=== PATIENT | male | born 1945 | race Caucasian/White ===

== ENCOUNTER 2022-03-18 13:01 | Emergency (ER) | payer MEDICARE, SELFPAY ==
[2022-03-18] VITALS (9 sets, daily range): BP systolic 115–143; BP diastolic 67–74; PULSE 77–90; RESP 13–20; TEMP 36.4; O2SAT 93–97
--- NOTE | ~2022-03-18 | XR_ITS ---
EXAMINATION: XR chest 1V portable DATE: 03/18/2022 13:28 INDICATION: Syncope. TECHNIQUE: A single frontal view of the chest was obtained. COMPARISON: None. FINDINGS: A calcified left lung nodule is consistent with old granulomatous disease. There is mild at electasis in the lower lung zones. No pleural effusion or pneumothorax. The heart size is normal. IMPRESSION: 1. Mild atelectasis in the lower lung zones. Reviewed, dictated and finalized at location A.
--- NOTE | 2022-03-18 13:11 | ECG_ITS ---
Measurements Intervals [place] Rate: 82 P: 37 WA: 172 QRS: 4 QRSD: 95 T: 33 QT: 359 QTc: 420 Interpretive Statements SINUS RHYTHM RSR' IN V1 OR V2, PROBABLY NORMAL VARIANT NORMAL ECG NO PREVIOUS ECG AVAILABLE FOR COMPARISON Electronically Signed On 03-18-2022 17:48:00 CDT by Daniel Torres D.O.
--- NOTE | 2022-03-18 13:14 | PC.NURSE ---
Patient reports he was working in a confined space and was having insulation falling on him, when he felt short of breath. Patient reports he told his brother he was going to pass out and sat down then passed out.
--- NOTE | 2022-03-18 13:21 | ED.GENADULT ---
HPI - General Adult General Chief complaint: Syncope Stated complaint: syncope Time Seen by Provider: 03/18/22 13:11 History of Present Illness HPI narrative: This is a 76-year-old male presenting to the ED after syncopal event. 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 There is very little air flow through the closet and was quite hot. Patient noted that he was very sweaty afterwards. When he finished working he left the room and was feeling lightheaded. He laid on the sofa and then had a syncopal event. He did not strike his head. It was witnessed by his son. He did have some slight shaking and an episode of vomiting at that time. Within 1 minute he had regained consciousness and returned to his baseline mental status. He was then brought to the hospital by his family for further evaluation. Patient denies any physical complaints at this time. Related Data Allergies Allergy/AdvReac Type Severity Reaction Status Date / Time No Known Allergies Allergy Verified 03/18/22 13:10 Review of Systems Review of Systems: CONSTITUTIONAL: Denies night sweats. EYES: No eye pain ENT: Denies rhinorrhea CARDIOVASCULAR: Denies palpitations RESPIRATORY: Denies hemoptysis GASTROINTESTINAL: Denies hematemesis GENITOURINARY: Denies hematuria. SKIN: Denies rash MUSCULOSKELETAL: Denies myalgia. NEUROLOGIC: Denies weakness. PSYCHIATRIC: Denies delusions PMFSH Past Medical History Medical History (Updated 03/18/22 @ 17:25 by Sterling Multani MD) Asthma Back pain Prostate cancer Surgical History Surgical History (Updated 03/18/22 @ 13:24 by Sterling Multani MD) H/O knee surgery History of appendectomy Social History Social History (Updated 03/18/22 @ 13:25 by Sterling Multani MD) Social History: Patient drinks alcohol occasionally, denies use tobacco or drugs. Exam Narrative: APPEARANCE: No apparent distress. Head atraumatic. EYES: PERRLA/EOMI, NOSE: Normal no drainage NECK: Supple, Trachea midline RESPIRATORY: Patient has scattered expiratory wheezes. No increased work of breathing. CARDIOVASCULAR: S1S2 appreciated ABDOMINAL: Soft, nontender, nondistended, MUSCULOSKELETAl: No obvious deformities NEURO: Alert. Moving 4/4 extremities SKIN:: Warm, dry. Normal color PSYCHIATRIC: Normal affect Course Vital Signs Vital signs: Vital Signs Temperature 97.6 F 03/18/22 13:03 Pulse Rate 82 03/18/22 13:03 Respiratory Rate 17 03/18/22 13:03 Blood Pressure 143/70 H 03/18/22 13:03 Pulse Oximetry 94 03/18/22 13:03 Temperature 97.6 F 03/18/22 13:03 Pulse Rate 77 03/18/22 16:44 Respiratory Rate 17 03/18/22 16:44 Blood Pressure 123/67 03/18/22 14:46 Pulse Oximetry 97 03/18/22 16:44 Medical Decision Making MDM Narrative Medical decision making narrative: This is a 76-year-old male presenting to the ED with an episode of syncope. Based on patient's history and physical this is most likely heat syncope related to his physical activity as well as some dehydration. However due to his advanced age we will obtain basic lab work including 2 troponins, EKG and chest x-ray. Patient will be given iv fluid resuscitation. Lab work was within acceptable levels including 2- troponins. Chest x-ray showed some bibasilar atelectasis but no other acute findings. Upon re-evaluation patient is feeling better. He is able ambulate with steady gait. He is comfortable going home at this time. Patient will be discharged with instructions return emergency department if his condition has worsened. Vital Signs Vital Signs: Vital Signs Temperature 97.6 F 03/18/22 13:03 Pulse Rate 82 03/18/22 13:03 Respiratory Rate 03/18/22 13:03 Blood Pressure 143/70 H 03/18/22 13:03 Pulse Oximetry 94 03/18/22 13:03 Temperature 97.6 F 03/18/22 13:03 Pulse Rate 77 03/18/22 16:44 Respiratory Rate 03/18/22 16:44 B
[2022-03-18] MEDS: SODIUM CHLORIDE 0.9% IV 1,000 ML 999 ML IV CONT (13:26)
[2022-03-18 13:33] LABS: Basophils Absolute Auto 0.1 K/mm3 (0.0-0.1); Eosinophils Absolute Auto 0.6 K/mm3 (0-0.3); Hematocrit 37.4 % (42.0-52.0); Hemoglobin 12.5 g/dL (14.0-18.0); Immature Granulocyte Absolute 0.03 K/mm3 (0.00-0.031); Immature Granulocyte Percent A 0.3 % (0-0.5); Lymphocytes Absolute Auto 3.05 K/mm3 (0.9-3.2); Mean Corpuscular HGB Conc 33.4 g/dl (32-36); Mean Corpuscular Hemoglobin 29.5 pg (26-34); Mean Corpuscular Volume 88.2 fl (80-100); Mean Platelet Volume 10.3 fl (7.4-10.4); Monocytes Percent Auto 8.2 % (2.6-8.5); Neutrophils Percent Auto 59.5 % (45.5-73.1); Platelet Count Result 257 k/mm3 (150-375); Red Blood Count 4.24 M/mm3 (4.6-6.20); Red Cell Distribution Width 14.8 % (11.5-14.5); White Blood Count 11.7 K/mm3 (4.5-10.0)
[2022-03-18 13:42] LABS: Alanine Aminotransferase 26 U/L (6-50); Alkaline Phosphatase 74 U/L (38-126); Anion Gap 10 mmol/L (8-16); Aspartate Amino Transferase 28 U/L (17-59); Bilirubin,Total 0.4 mg/dL (0.2-1.3); Blood Urea Nitrogen 23 mg/dL (9-20); Carbon Dioxide 23 mmol/L (22-30); Chloride 105 mmol/L (98-107); Estimated CRCL calculation 54 ml/min; Estimated Glomerular Filt Rate > 60; Glucose 112 mg/dL (65-110); Potassium 4.2 mmol/L (3.4-5.0); Sodium 138 mmol/L (137-145)
[2022-03-18] MEDS: ALBUTEROL SULFATE NEB 2.5 MG/3 ML INH 5 MG INHALATION (13:44)
[2022-03-18] MEDS: IPRATROPIUM BR 0.02% INH SOLN 0.5 MG/2.5 ML VIAL INHALATION (13:44)
[2022-03-18 13:53] LABS: NT Pro B Type Natriuretic Pept 170 pg/mL (5-100); Troponin I < 0.012 ng/mL (0.000-0.034)
[2022-03-18 16:48] LABS: Troponin I < 0.012 ng/mL (0.000-0.034)
--- NOTE | 2022-03-18 17:19 | PC.NURSE ---
Patient ambulated to the bathroom and back without any difficulty, dizziness, or light headedness.
== END 2022-03-18 17:38 | disposition home or self-care (01) ==
PROVIDERS: Emergency Provider Emergency Medicine; PCP Family Medicine
DX: R55 Syncope and collapse (principal)
CPT/HCPCS: 36415; 71045; 80053; 83880; 84484; 85025; 93005; 94640; 96360; 99284; J7030

== ENCOUNTER 2022-06-01 10:41 | Day surgery (SDC) | payer MEDICARE, SELFPAY ==
[2022-05-09 12:28] VITALS: BMI 31.6
[2022-05-17 11:55] VITALS: BMI 29.0
[2022-06-01 11:10] VITALS: BP 143/75; PULSE 70; RESP 20; TEMP 36.6; O2SAT 98
--- NOTE | 2022-06-01 12:31 | WPDANESEPPF ---
Anes - Initial Pre Proc Eval Procedure: Operation Date: 06/01/22 12:30 Proposed Procedures p Diagnostic Colonoscopy - Bertram Monroe MD Date/Time: 06/01/22 12:31 Surgeon: Bertram Monroe MD Pre Op Diagnosis: Positive Cologuard Patient Data Age: 76 Gender: M Height: 1.78 m Weight: 94.3 kg Allergies Allergy/AdvReac Type Severity Reaction Status Date / Time No Known Allergies Allergy Verified 06/01/22 11:12 Home Medications Medication Instructions Recorded Confirmed Type sodium,potassium,mag sulfates 17.5 See Rx Instructions PO .COMPLEX 05/09/22 06/01/22 Rx gram-3.13 gram-1.6 gram oral soln #354 mL (Suprep Bowel Prep Kit) albuterol sulfate 2.5 mg/3 mL 2.5 mg inhalation PRN PRN 05/17/22 06/01/22 History (0.083 %) solution for nebulization Shortness Of Breath albuterol sulfate 90 mcg/actuation 1 puff inhalation PRN PRN 05/17/22 06/01/22 History aerosol inhaler Shortness Of Breath budesonide-formoterol HFA 160 1 puff inhalation DAILY 05/17/22 06/01/22 History mcg-4.5 mcg/actuation aerosol inhaler (Symbicort) finasteride 5 mg tablet 5 mg PO DAILY 05/17/22 06/01/22 History gabapentin 100 mg capsule 200 mg PO BID 05/17/22 06/01/22 History meloxicam 7.5 mg tablet 7.5 mg PO DAILY 05/17/22 06/01/22 History pantoprazole 40 mg tablet,delayed 40 mg PO DAILY 05/17/22 06/01/22 History release tamsulosin 0.4 mg capsule 0.4 mg PO HS 05/17/22 06/01/22 History Patient hx anesthesia problems: other (slow to awaken) Family hx anesthesia problems: none Results Review: All pre-operative results and documents have been reviewed as part of the pre-operative evaluation. [facility] Past Medical History Medical History Arthritis Asthma Back pain COPD (chronic obstructive pulmonary disease) GERD (gastroesophageal reflux disease) Prostate cancer Surgical History Surgical History H/O knee surgery History of appendectomy Social History Social History Social History: Patient drinks alcohol occasionally, denies use tobacco or drugs. Smoking packs per day: 2 Smoking cigarettes per day: 40.0 Years smoked: 50 Smoking pack-years: 100.00 Smoking status: Former smoker Tobacco type: cigarettes Alcohol intake: current Alcohol use details: 1-2 hard liquor drinks per week Substance use: never Substance use type: does not use Living arrangements: with family Spiritual care concerns: No Anes - Eval Final PreProcedure Day of Procedure 06/01/22 12:31 Patient weight: overweight Heart: regular rate and rhythm Lungs: decreased breath sounds Airway: Mallampati scale class II Neurological: alert and oriented Last oral intake: >/= 8 hours ASA classification: III Emergent: no Anesthetic plan: proceed Anesthesia type and monitoring: general GIVS and standard monitoring Results Review: All pre-operative results and documents have been reviewed as part of the pre-operative evaluation. Informed Consent: The patient's anesthetic plan and its attendant risks and benefits were discussed with the patient/family/POA. Questions were solicited and answers provided to the satisfaction of the patient/family/POA.
[2022-06-01] MEDS: LACTATED RINGERS 1,000 ML 150 ML IV CONT ×2 (12:49→13:15)
--- NOTE | 2022-06-01 12:50 | PM.HPGS ---
History of Present Illness History of Present Illness Consent: Risks, benefits, and alternatives have been discussed and questions answered. Patient agrees to proceed with procedure. Chief complaint: Positive Cologuard Narrative: Hernandez Robertson is a 76 year old male Presents for colonoscopy. Patient's current weight appetite and bowel movements are normal. Patient underwent a recent Cologuard test that was positive for this reason referred for colonoscopy. Patient gives a history that he has had colon polyps in the past. Family history is significant both father and brother with colon cancer. Patient states his most recent colonoscopy was 5 years ago. Review of Systems Review of Systems: review of systems noncontributory. PMFSH Past Medical History Medical History Arthritis Asthma Back pain COPD (chronic obstructive pulmonary disease) GERD (gastroesophageal reflux disease) Prostate cancer Surgical History Surgical History H/O knee surgery History of appendectomy Social History Social History Social History: Patient drinks alcohol occasionally, denies use tobacco or drugs. Smoking packs per day: 2 Smoking cigarettes per day: 40.0 Years smoked: 50 Smoking pack-years: 100.00 Smoking status: Former smoker Tobacco type: cigarettes Alcohol intake: current Alcohol use details: 1-2 hard liquor drinks per week Substance use: never Substance use type: does not use Living arrangements: with family Spiritual care concerns: No Meds Home Medications and Allergies Home Medications Medication Instructions Recorded Confirmed Type sodium,potassium,mag sulfates 17.5 See Rx Instructions PO .COMPLEX 05/09/22 06/01/22 Rx gram-3.13 gram-1.6 gram oral soln #354 mL (Suprep Bowel Prep Kit) albuterol sulfate 2.5 mg/3 mL 2.5 mg inhalation PRN PRN 05/17/22 06/01/22 History (0.083 %) solution for nebulization Shortness Of Breath albuterol sulfate 90 mcg/actuation 1 puff inhalation PRN PRN 05/17/22 06/01/22 History aerosol inhaler Shortness Of Breath budesonide-formoterol HFA 160 1 puff inhalation DAILY 05/17/22 06/01/22 History mcg-4.5 mcg/actuation aerosol inhaler (Symbicort) finasteride 5 mg tablet 5 mg PO DAILY 05/17/22 06/01/22 History gabapentin 100 mg capsule 200 mg PO BID 05/17/22 06/01/22 History meloxicam 7.5 mg tablet 7.5 mg PO DAILY 05/17/22 06/01/22 History pantoprazole 40 mg tablet,delayed 40 mg PO DAILY 05/17/22 06/01/22 History release tamsulosin 0.4 mg capsule 0.4 mg PO HS 05/17/22 06/01/22 History Allergies Allergy/AdvReac Type Severity Reaction Status Date / Time No Known Allergies Allergy Verified 06/01/22 11:12 Vital Signs Vital Signs - 24 hr 06/01/22 11:10 Temperature 98 F Pulse Rate 70 Respiratory Rate 20 Blood Pressure 143/75 H Pulse Oximetry 98 Oxygen Delivery Room Air Exam Narrative: Physical exam reveals patient to be alert. Vital signs stable. HEENT exam is unremarkable. Patient is anicteric. Lungs are clear to auscultation and percussion. Heart is without murmur or extra sounds. Abdomen bowel sounds present soft nontender with no organomegaly. Digital external rectal exam is normal. Assessment and Plan Assessment and plan (1) Positive colorectal cancer screening using Cologuard test: Code(s): R19.5 - Other fecal abnormalities Status: Acute Assessment and Plan: Patient had recent Cologuard test which was positive suggesting has a higher than average risk of colon polyps. Colonoscopy recommended now. Also recommended every 5 years because of his prior history of colon polyps and family history of colon cancer in 2 first-degree relatives. (2) History of colon polyps: Code(s): Z86.010 - Personal history of colonic polyps
[2022-06-01 13:15] VITALS: BP 114/73; PULSE 77; RESP 16; O2SAT 98
[2022-06-01 13:25] VITALS: BP 121/60; PULSE 65; RESP 16; O2SAT 97
--- NOTE | 2022-06-01 13:33 | WPDANESPN ---
Anes - Prog Note Post-Op Date/Time: 06/01/22 13:33 Cardiovascular status: normal Respiratory status: normal Airway patency: baseline Mental status: baseline Post-Op hydration status: normal Vital Signs: Last Vital Signs Temp 36.6 C 06/01/22 11:10 Pulse 77 06/01/22 13:15 Resp 16 06/01/22 13:15 BP 114/73 06/01/22 13:15 Pulse Ox 98 06/01/22 13:15 O2 Del Method Room Air 06/01/22 13:15 Pain Score (VAS): 0 I/O: Intake & Output 05/31/22 06/01/22 06/01/22 23:59 07:59 15:59 Intake Total 0 Balance 0 Patient Feedback: Patient satisfied with anesthetic care.
[2022-06-01 13:35] VITALS: BP 148/73; PULSE 68; RESP 18
--- NOTE | 2022-06-01 13:37 | SUR.PHASEII ---
PT AWAKE AND ALERT. EATING AND DRINKING. DENIES PAIN. SPOUSE AT BEDSIDE.
== END 2022-06-01 14:03 | disposition home or self-care (01) ==
PROVIDERS: PCP Family Medicine; Visit Provider Internal Medicine Gastroenterology
PROC: 0DJD8ZZ Inspection of Lower Intestinal Tract, Via Natural or Artificial Opening Endoscopic (ICD-10-PCS; CPT 45378; principal; 2022-06-01 12:30)
DX: Z86.010 Personal history of colon polyps (principal)
CPT/HCPCS: 45378

== ENCOUNTER 2023-01-31 12:05 | Outpatient (CLI) | payer MEDICARE, SELFPAY ==
--- NOTE | ~2023-01-31 | CT_ITS ---
EXAMINATION: CT lung screening DATE: 01/31/2023 13:27 INDICATION: HISTORY OF NICOTINE DEPENDENCE TECHNIQUE: Computed tomography (CT) of the chest was performed without intravenous contrast. Addition al 3D reconstructions utilizing coronal maximum intensity projection (MIP) were performed. Automated exposure control and iterative reconstruction technique were employed. The dose-length product was 14 1.95 mGy-cm. COMPARISON: None FINDINGS: Minimal biapical pleural-parenchymal scarring. Couple calcified left upper lobe nodules along with ca lcified left hilar and mediastinal lymph nodes consistent with old granulomatous disease. Mild bibasi lar atelectasis. No other suspicious pulmonary nodules, pulmonary edema, pleural effusion or pneumoth orax. Heart size is normal. Small amount of atherosclerotic coronary artery calcification. Minimal pe ricardial effusion. Small sliding-type hiatal hernia. Thoracic aorta is normal in caliber. No patholo gically enlarged thoracic lymphadenopathy. 1.5 cm exophytic cyst at the left kidney. Mild S-shaped sc oliosis of the thoracic spine with 15 degree upper thoracic levocurvature scoliosis and 15 degrees mi dthoracic dextroscoliosis. Severe lower cervical and lower thoracic spondylosis. IMPRESSION: 1. Lung-RADS category 1: Negative. Continue annual screening with noncontrast low-dose chest CT in 12 months. 2. Small sliding-type hiatal hernia. Reviewed, dictated and finalized at location A. IMPRESSION: 1. Lung-RADS category 1: Negative. Continue annual screening with noncontrast l ow-dose chest CT in 12 months. 2. Small sliding-type hiatal hernia.
== END 2023-01-31 12:06 | disposition home or self-care (01) ==
PROVIDERS: PCP Family Medicine; Visit Provider Nurse Practitioner Adult Health
DX: Z12.2 Encounter for screening for malignant neoplasm of respiratory organs (principal); Z87.891 Personal history of nicotine dependence; K44.9 Diaphragmatic hernia without obstruction or gangrene
CPT/HCPCS: 71271

== ENCOUNTER 2023-12-09 11:39 | Emergency (ER) | payer MEDICARE, SELFPAY ==
--- NOTE | ~2023-12-09 | XR_ITS ---
XR toe 1st LT min 2V 12/09/2023 12:00 Indication: Trauma to the left first toe Procedure: 4 views left first toe Comparison: No prior studies for comparison. Findings: There is a comminuted mildly displaced extra-articular fracture first distal phalanx. Mild soft tissue swelling. Impression: 1: Comminuted mildly displaced extra-articular fracture left first distal phalanx. Reviewed, dictated and finalized at location B. Impression: 1: Comminuted mildly displaced extra-articular fracture left first distal phala nx.
--- NOTE | 2023-12-09 11:42 | ED.LOWEXIN ---
HPI - Extremity Injury (Lower) General Chief Complaint: Extremity Problem,Nontraumatic Stated Complaint: Injured Toe left Foot Time Seen by Provider: 12/09/23 11:42 Source: patient Mode of arrival: ambulatory Limitations: no limitations History of Present Illness HPI Narrative: Layton is a 78-year-old male patient presenting to the clinic today with complaints of injury to his left great toe. He reports he dropped a brick on it about 1 week ago. Feels as though the area is swollen and red and is concerned about infection in stay his pain is gradually getting worse. Related Data Home Medications Medication Instructions Recorded Confirmed albuterol sulfate 2.5 mg/3 mL 2.5 mg inhalation PRN PRN 05/17/22 12/09/23 (0.083 %) solution for nebulization Shortness Of Breath albuterol sulfate 90 mcg/actuation 1 puff inhalation PRN PRN 05/17/22 12/09/23 aerosol inhaler Shortness Of Breath budesonide-formoterol HFA 160 1 puff inhalation DAILY 05/17/22 12/09/23 mcg-4.5 mcg/actuation aerosol inhaler (Symbicort) finasteride 5 mg tablet 5 mg PO DAILY 05/17/22 12/09/23 gabapentin 100 mg capsule 200 mg PO BID 05/17/22 12/09/23 meloxicam 7.5 mg tablet 7.5 mg PO DAILY 05/17/22 12/09/23 pantoprazole 40 mg tablet,delayed 40 mg PO DAILY 05/17/22 12/09/23 release tamsulosin 0.4 mg capsule 0.4 mg PO HS 05/17/22 12/09/23 furosemide 20 mg tablet 20 mg PO DAILY 12/09/23 12/09/23 potassium chloride 10 mEq 10 meq PO DAILY 12/09/23 12/09/23 tablet,extended release(part/cryst) (Klor-Con M) Allergies Allergy/AdvReac Type Severity Reaction Status Date / Time No Known Allergies Allergy Verified 12/09/23 11:45 Review of Systems Review of Systems: Pertinent positives per HPI. Patient denies any fever, chills, rash, headache, visual changes, dizziness, cough, runny nose, sore throat, shortness of breath, chest pain, palpitations, nausea, vomiting, diarrhea, constipation, abdominal pain, or any urinary issues. PMFSH Past Medical History Medical History Arthritis Asthma Back pain COPD (chronic obstructive pulmonary disease) GERD (gastroesophageal reflux disease) Prostate cancer Surgical History Surgical History H/O knee surgery History of appendectomy Social History Social History Social History: Patient drinks alcohol occasionally, denies use tobacco or drugs. Smoking packs per day: 2 Smoking cigarettes per day: 40.0 Years smoked: 50 Smoking pack-years: 100.00 Smoking status: Former smoker Tobacco type: cigarettes Alcohol intake: current Alcohol use details: 1-2 hard liquor drinks per week Substance use: never Substance use type: does not use Living arrangements: with family Spiritual care concerns: No Comments At the time of my signature, I reviewed and agree with the nursing past medical, surgical, social, and family history. There is no relevant family history pertinent to the patient complaint. Exam Narrative: General: Well-developed, well nourished, in no apparent distress Head: Normocephalic, atraumatic. Cardio: Regular rate and rhythm, s1 and s2 normal, no murmur appreciated. Resp: Clear to auscultation bilaterally, no rhonchi, rales, wheezing or rubs. Musculoskeletal: No deformity, mild redness and swelling to the distal left great toe proximal of the toenail, old bruising noted to the distal toe, tender to palpation over this area, grossly normal range of motion, no drainage, muscle strength strong and equal, peripheral pulse strong, no edema, no cyanosis, normal gait and station Course Course Emergency Course: Portions of this record may have been created with voice recognition software. Level of Care: Express Care Visit Vital Signs Vital signs: Vital Signs Temperature 36.4 C L 12/09/23
[2023-12-09 11:51] VITALS: BP 127/69; PULSE 78; RESP 16; TEMP 36.4; O2SAT 98
[2023-12-09] MEDS: TETANUS,DIPHTHERIA,AC PERTUSSIS ADULT (0.5 ML) BOOSTRIX IM (12:20)
== END 2023-12-09 12:30 | disposition home or self-care (01) ==
PROVIDERS: Emergency Provider Nurse Practitioner Family
DX: S92.422A Displaced fracture of distal phalanx of left great toe, initial encounter for closed fracture (principal); W20.8XXA Other cause of strike by thrown, projected or falling object, initial encounter; Z23 Encounter for immunization; M19.90 Unspecified osteoarthritis, unspecified site; J44.9 Chronic obstructive pulmonary disease, unspecified; K21.9 Gastro-esophageal reflux disease without esophagitis; Z85.46 Personal history of malignant neoplasm of prostate; Z87.891 Personal history of nicotine dependence
CPT/HCPCS: 73660; 90471; 90715; 99213; G0463